=== PATIENT | female | born 1950 | race Caucasian/White ===

== ENCOUNTER 2018-08-06 09:00 | Day surgery (SDC) | payer MEDICARE, BC ==
[2018-07-30 17:06] VITALS: BMI 35.4
[~2018-08-06 09:00] MED LIST: ALPRAZolam 0.25 MG TAB PO PRN; ALPRAZolam 0.5 MG TAB PO PRN; ASPIRIN 325 MG TAB PO STA; NITROGLYCERIN SL TABS 0.4 MG TAB SUBLINGUAL PRN; SODIUM CHLORIDE 0.9% 1,000 ML in EMPTY BAG 1 BAG IV ONE
[2018-08-06 09:53] VITALS: PULSE 49; RESP 20; TEMP 97.9
[2018-08-06] MEDS ORDERED: VERAPAMIL 2.5 MG/ML 2 ML AMP ONE (10:10)
[2018-08-06] MEDS ORDERED: HEPARIN SODIUM 1,000 UN/ML (10ML VL) ONE (10:10)
[2018-08-06] MEDS ORDERED: MIDAZOLAM 2 MG/2 ML VIAL ONE (10:10)
[2018-08-06] MEDS ORDERED: LIDOCAINE 1% INJ 10MG/ML (20 ML MDV) ONE (10:10)
[2018-08-06] MEDS: MIDAZOLAM 2 MG/2 ML VIAL IVP ONE ×2 (10:19→10:40)
[2018-08-06] MEDS ORDERED: LIDOCAINE 1% (PF) 10MG/ML VIAL SQ ONE (10:23)
[2018-08-06] MEDS: VERAPAMIL SYRINGE (5 MG/10 ML) INTRAARTER ONE ×2 (10:25→10:56)
[2018-08-06] MEDS ORDERED: ADENOSINE 90 MG in SODIUM CHLORIDE 0.9% 60 ML IVP ONE (10:51)
[2018-08-06] MEDS ORDERED: IOPAMIDOL-370 125ML BTL INJ ONE (10:55)
[2018-08-06] MEDS ORDERED: RX INFO: IV CONTRAST WAS GIVEN 1 EACH MISC MISCELLANE PRN (10:59)
[2018-08-06] MEDS ORDERED: SODIUM CHLORIDE 0.9% 1,000 ML IV SCH (11:00)
--- NOTE | 2018-08-06 16:18 | CC ---
CARDIAC CATHETERIZATION REPORT DATE OF SERVICE: 08/06/2018 PERFORMING PHYSICIAN: Tim Gipson MD, sifter and miller. PROCEDURES PERFORMED: 1. Selective right and left coronary angiogram. 2. Left heart catheterization. 3. Fractional flow reserve of the left anterior descending coronary artery. INDICATION: This is a pleasant 68-year-old female patient with hypertension who was experiencing chest discomfort and underwent myocardial perfusion imaging stress test. That revealed anterior ischemia. Because of that, heart catheterization was advised. APPROACH: Right radial artery. COMPLICATIONS: None. LEVEL OF SEDATION: Moderate with sedation length of 36 minutes. PROCEDURE DESCRIPTION: After obtaining informed consent, the patient was brought to the cardiac roving tester laboratory. The right radial artery was cannulated using micropuncture technique. The micropuncture wire passed easily. Then I placed a 6-Peruvian sheath in the right radial artery and subsequently I gave the patient 2 mg of Verapamil IA and 10,000 units of heparin IV. Selective right and left coronary angiogram was achieved using JR4 and JL3.5 catheters. Left heart catheterization was performed using a 6-Peruvian pigtail catheter. After that I performed fractional flow reserve of the LAD. Please see a separate paragraph for that. SELECTIVE CORONARY ANGIOGRAM: 1. The RCA is a large-caliber vessel. It is a dominant vessel and it is angiographically normal. It distally bifurcates into PDA and PLV branches; both are angiographically normal. 2. The left main is angiographically normal. It bifurcates into left circumflex and left anterior descending artery. The left circumflex is a large-caliber vessel and a nondominant vessel. The proximal circumflex is normal. The mid circumflex is normal and gives rise to first and second OM branches. Both are angiographically normal and the circumflex distally appeared to be angiographically normal. 3. The LAD. The proximal LAD appeared to be angiographically normal. The mid LAD by the bifurcation of the first diagonal branch has a lesion that appeared to be in the range of 60% to 70%. I did an FFR on it and the FFR came in to be at 0.87, which is nonischemic. The LAD distally appeared to be angiographically normal. The first diagonal branch has an ostial lesion that appeared to be in the range of 50%. 4. Hemodynamics. The left ventricular end-diastolic pressure was 12 mmHg and no gradient was identified across the aortic valve. 5. FFR of the LAD. After zeroing the Doppler wire and equalizing between the Doppler wire and the guiding catheter, which was a JL3.5 guiding catheter, we did an FFR per IV adenosine infusion. The FFR came in to be 0.87. CONCLUSION: Intermediate disease involving the mid LAD. The FFR was performed and came in to be at 0.87. POST-PROCEDURE MANAGEMENT: Maximize medical treatment and follow up with the patient. QUINTEN / GALDINON: [id number] /
--- NOTE | 2018-08-06 16:21 | LTR ---
August 06, 2018 To: Dr. Rula Alvarez Re: Fátima Gilliland (46) Dear Dr. Alvarez, Ms. Fátima Gilliland underwent heart catheterization today that showed intermediate disease involving the mid LAD. I did a fractional flow reserve of that lesion and that came in to be nonischemic. Because of that, maximized medical treatment was advised. I want to thank you for allowing me to participate in her care. Please do not hesitate to call if you have any question or concern. Sincerely, Tim Gipson MD MMGERL / GALDINON: [id number] /
[2018-08-06 16:25] VITALS: BP 162/77
== END 2018-08-06 16:00 | disposition home or self-care (01) ==
LOC: CATHCVL 09:00
PROVIDERS: ATTEND Internal Medicine Interventional Cardiology
DX: I25.110 Atherosclerotic heart disease of native coronary artery with unstable angina pectoris (principal); I10 Essential (primary) hypertension; E78.5 Hyperlipidemia, unspecified; E78.00 Pure hypercholesterolemia, unspecified; E78.1 Pure hyperglyceridemia; Z82.49 Family history of ischemic heart disease and other diseases of the circulatory system; Z79.899 Other long term (current) drug therapy; Z79.82 Long term (current) use of aspirin
CPT/HCPCS: 93571; 93458; 85347; C1887; C1769; C1894; J2250; J0153; J2001; J1644; Q9967

== ENCOUNTER 2021-01-25 07:31 | Day surgery (SDC) | payer MEDICARE, BC ==
[2021-01-22 16:00] VITALS: BMI 35.4
[~2021-01-25 07:31] MED LIST changes: -ALPRAZolam 0.25 MG TAB PO PRN; -ALPRAZolam 0.5 MG TAB PO PRN; -ASPIRIN 325 MG TAB PO STA; +LACTATED RINGERS 1,000 ML IV SCH; -NITROGLYCERIN SL TABS 0.4 MG TAB SUBLINGUAL PRN; -SODIUM CHLORIDE 0.9% 1,000 ML in EMPTY BAG 1 BAG IV ONE
[2021-01-25 07:58] VITALS: TEMP 96.9
[2021-01-25] MEDS ORDERED: LIDOCAINE 1% (10MG/ML) FOR IV START INTRADERMA ONE (08:00)
[2021-01-25] MEDS ORDERED: GLYCOPYRROLATE 0.2 MG/ML 2 ML VIAL ONE (08:29)
[2021-01-25] MEDS ORDERED: PROPOFOL 10 MG/ML 20 ML VIAL IV ONE (08:29)
--- NOTE | 2021-01-25 08:33 | P.GSHP ---
History of Present Illness H&P Date: 01/25/21 Chief Complaint: Screening colonoscopy This a 70-year-old female presents today for screening colonoscopy. Patient denies a significant GI complaints. She has a history of colon polyps Past Medical History Past Medical History: Cancer, GERD/Reflux, Hyperlipidemia, Hypertension, Osteoarthritis (OA), Skin Disorder Additional Past Medical History / Comment(s): neg COVID test 01/11/21, was exposed to COVID 01/06/21- denies any symptoms. hx palpitations and irregular heartrate, dry skin, eczema, hypothyroid, hx uterine cancer History of Any Multi-Drug Resistant Organisms: None Reported Past Surgical History: Section, Cholecystectomy, Hysterectomy Additional Past Surgical History / Comment(s): colonoscopy, Past Anesthesia/Blood Transfusion Reactions: Motion Sickness Additional Past Anesthesia/Blood Transfusion Reaction / Comment(s): vertigo, Smoking Status: Never smoker - Past Family History Father Family Medical History: Cancer Additional Family Medical History / Comment(s): lung Sister(s) Family Medical History: Pulmonary Embolus Medications and Allergies Home Medications Medication Instructions Recorded Confirmed Type Aspirin [Adult Low Dose Aspirin EC] 81 mg PO HS 07/30/18 01/25/21 History Biotin 10,000 mcg PO BID 07/30/18 01/25/21 History Cetirizine HCl [Zyrtec] 10 mg PO HS 07/30/18 01/25/21 History Multivit-Min/Iron/Folic/Lutein 1 each PO DAILY 07/30/18 01/25/21 History [Centrum Silver Women Tablet] [place]-3 Fatty Acids [[place]-3] 1,000 mg PO DAILY 07/30/18 01/25/21 History Omeprazole 20 mg PO Q2D 07/30/18 01/25/21 History Turmeric (Unknown Dose) 538 mg PO DAILY 07/30/18 01/25/21 History atenoloL [Tenormin] 50 mg PO DAILY 07/30/18 01/25/21 History Cholecalciferol [Vitamin D3 (25 50 mcg PO HS 01/22/21 01/25/21 History Mcg = 1000 Iu)] Glucosamine/Chondr Peck A Sod [Osteo 1 each PO QAM 01/22/21 01/25/21 History Bi-Flex Caplet] L.acidoph,Paracasei, B.lactis 1 each PO HS 01/22/21 01/25/21 History [Probiotic] Lovastatin [Mevacor] 40 mg PO HS 01/22/21 01/25/21 History Allergies Allergy/AdvReac Type Severity Reaction Status Date / Time lovastatin Allergy joint pain Verified 01/25/21 07:58 Xkhkdyf-Syr-Rjq Reductase AdvReac JOINT PAIN Verified 01/25/21 07:58 Inhibitor Surgical - Exam Vital Signs Temp Pulse Resp BP Pulse Ox 96.9 F L 54 L 16 140/65 95 01/25/21 07:56 01/25/21 07:56 01/25/21 07:56 01/25/21 07:56 01/25/21 07:56 - General well developed, well nourished, no distress - Eyes PERRL - ENT normal pinna - Neck no masses - Respiratory normal expansion - Cardiovascular Rhythm: regular - Abdomen Abdomen: soft, non tender Assessment and Plan Assessment: We'll perform screening colonoscopy
--- NOTE | 2021-01-25 08:46 | P.OP ---
Date of Procedure: 01/25/21 Preoperative Diagnosis: Screening colonoscopy Postoperative Diagnosis: Diverticulosis Procedure(s) Performed: Colonoscopy Anesthesia: MAC Surgeon: Lang Painter Pathology: none sent Condition: stable Disposition: PACU Description of Procedure: The patient's placed on the endoscopy table lateral position. She received IV sedation. Digital rectal exam is performed revealed external hemorrhoids. The flexible colonoscope was then placed patient anus. Patient developed arrhythmia with appeared to be heart block. Anesthesia treated this. Patient then had the colonoscope advanced rotator colon. Ileocecal valve visualized. The cecum, ascending transverse colon appeared normal. The descending; appeared normal. The scope was then brought back the rectum and this appeared normal. Scope withdrawn for patient. Patient was sent to [facility] to have her cardiac rhythm checked. Cardiology consult was obtained.
[2021-01-25 11:24] VITALS: BP 152/65; RESP 18
--- NOTE | 2021-01-25 11:42 | P.CRDCN ---
History of Present Illness History of present illness: HISTORY OF PRESENTING ILLNESS This is a pleasant 70 year-old female past medical history significant for non critical coronary artery disease and known intermediate to severe disease involving the LAD, hypertension, dyslipidemia. She follows in the office with Dr. Gipson. We have been asked to see in consultation for an arrhythmia on telemetry during colonoscopy. Patient underwent colonoscopy, she received IV sedation. Per nursing patient supposedly developed an arrhythmia, possible pause vs heart block, however, this was not captured. EKG reveals sinus with PACs. Patient is seen and examined in recovery, lying in stretcher comfortably, no apparent distress. She denies chest pain, palpitations, shortness of breath, lower extremity edema, fatigue, weakness, lightheadedness, syncope. No history of Diabetes, stroke or UT. Patient's Current cardiac medications include atenolol 50mg daily, lovastatin 40mg daily, aspirin 81mg daily. No cardiac telemetry strips able to review. On bedside telemetry patient in sinus mechanism HR 50s-60s. BP 124/54, afebrile, currently on 2L nasal cannula maintaining oxygen saturations. Most recent cardiac [id number]/2018 intermediate disease involving the mid LAD, FFR was nonischemic at 0.87 Most recent echocardiogram05/2018- normal EF 55%, mild pulmonary hypertension, mild to moderate TR REVIEW OF SYSTEMS At the time of my exam: CONSTITUTIONAL: Denies fever or chills. CARDIOVASCULAR: Denies chest pain, shortness of breath, orthopnea, PND or palpitations. RESPIRATORY: Denies cough. GASTROINTESTINAL: Denies abdominal pain, diarrhea, constipation, nausea or vomiting. MUSCULOSKELETAL: Denies myalgias. NEUROLOGIC: Denies numbness, tingling, headacbe or weakness. ENDOCRINE: Denies fatigue, weight change, polydipsia or polyurina. GENITOURINARY: Denies burning, hematuria or urgency with micturation. HEMATOLOGIC: Denies history of anemia or bleeding. PHYSICAL EXAMINATION CONSTITUTIONAL: No apparent distress. HEENT: Head is normocephalic. Pupils are equal, round. Sclerae anicteric. Mucous membranes of the mouth are moist. No JVD. No carotid bruit. CHEST EXAMINATION: Lungs are clear to auscultation. No chest wall tenderness is noted on palpation or with deep breathing. HEART EXAMINATION: Regular rate and rhythm. S1, S2 heard. No murmurs, gallops or rub. ABDOMEN: Soft, nontender. Positive bowel sounds. EXTREMITIES: 2+ peripheral pulses, no lower extremity edema and no calf tenderness. SKIN: intact NEUROLOGIC EXAMINATION: Patient is awake, alert and oriented x3. ASSESSMENT Coronary artery disease- known intermediate to severe disease involving the LAD Hypertension Dyslipidemia. PLAN -No further cardiac testing at this time -Recommend decreasing atenolol to 25mg BID, this was discussed with bedside nursing and with the patient. -Follow up with cardiology appointment with Dr. Gipson after discharge -This was discussed with the patient and she is agreeable to the plan. Nurse Practitioner note has been reviewed, I agree with a documented findings and plan of care. Patient was seen and examined. Past Medical History Past Medical History: Cancer, GERD/Reflux, Hyperlipidemia, Hypertension, Osteoarthritis (OA), Skin Disorder Additional Past Medical History / Comment(s): neg COVID test 01/11/21, was exposed to COVID 01/06/21- denies any symptoms. hx palpitations and irregular heartrate, dry skin, eczema, hypothyroid, hx uterine cancer History of Any Multi-Drug Resistant Organisms: None Reported Past Surgical History: Section, Cholecystectomy, Hysterectomy Additional Past Surgical History / Comment(s): colonoscopy, Past Anesthesia/Blood Transfusion Reactions: Motion Sickness Additional Past Anesthesia/Blood Transfusion Reaction / Comment(s): vertigo, Smoking Status: Never smoker - Past Family History Father Family Medical History: Cancer Additional Family Medical History / Comment(s): lung Sister(s) Family Medical History: Pulmonary Embolus Medications and Allergies Home Medications Medication Instructions Recorded Confirmed Type Aspirin [Adult Low Dose Aspirin EC] 81 mg PO HS 07/30/18 01/25/21 History Biotin 10,000 mcg PO BID 07/30/18 01/25/21 History Cetirizine HCl [Zyrtec] 10 mg PO HS 07/30/18 01/25/21 History Multivit-Min/Iron/Folic/Lutein 1 each PO DAILY 07/30/18 01/25/21 History [Centrum Silver Women Tablet] [place]-3 Fatty Acids [[place]-3] 1,000 mg PO DAILY 07/30/18 01/25/21 History Omeprazole 20 mg PO Q2D 07/30/18 01/25/21 History Turmeric (Unknown Dose) 538 mg PO DAILY 07/30/18 01/25/21 History atenoloL [Tenormin] 50 mg PO DAILY 07/30/18 01/25/21 History Cholecalciferol [Vitamin D3 (25 50 mcg PO HS 01/22/21 01/25/21 History Mcg = 1000 Iu)] Glucosamine/Chondr Peck A Sod [Osteo 1 each PO QAM 01/22/21 01/25/21 History Bi-Flex Caplet] L.acidoph,Paracasei, B.lactis 1 each PO HS 01/22/21 01/25/21 History [Probiotic] Lovastatin [Mevacor] 40 mg PO HS 01/22/21 01/25/21 History Allergies Allergy/AdvReac Type Severity Reaction Status Date / Time lovastatin Allergy joint pain Verified 01/25/21 07:58 Rahpces-Rzp-Bvr Reductase AdvReac JOINT PAIN Verified 01/25/21 07:58 Inhibitor Physical Exam Vitals: Vital Signs Temp Pulse Resp BP Pulse Ox 01/25/21 07:56 96.9 F L 54 L 16 140/65 95 Intake and Output 01/24/21 01/25/21 01/25/21 22:59 06:59 14:59 Intake Total 200 Balance 200 Intake: IV 200 Other: Weight 109 kg Results Current Medications Generic Name Dose Route Start Last Admin Trade Name Freq PRN Reason Stop Dose Admin Lactated Ringer's 1,000 mls @ 20 mls/hr 01/25/21 05:14 01/25/21 08:00 Lactated Ringers IV 02/24/21 05:15 200 mls .Q24H YAMINI Administration Intake and Output 01/24/21 01/25/21 01/25/21 22:59 06:59 14:59 Intake Total 200 Balance 200 Intake: IV 200 Other: Weight 109 kg Patient Weight 01/26/21 06:59 Weight 109 kg
[2021-01-25 11:45] VITALS: PULSE 53
--- NOTE | 2021-01-29 07:55 | CDI ---
Date 01.29.21 CDS/Supervisor [employer] Name: Nicolasa Guzmán Phone: If any questions, call Johnna Suggs, [employer] at Patient Name: Fátima Gilliland Discharge Date: 01.25.2021 ATTENTION: The [facility] Coding Staff appreciate your assistance in clarifying documentation. Please respond to the clarification below the line at the bottom and electronically sign. The [facility] Coding staff will review the response and follow-up if needed. Please note: Queries are made part of the Legal Health Record. If you have any questions, please contact the [employer]. Dear Dr. Painter In order to code to the greatest specificity and for the greatest reimbursement I need the following information: You have documented the postop dx as diverticulosis, in description of procedure you have documented the cecum, ascending, transverse colon appear normal. The descending appear normal. Please document where the diverticulosis was found. Thank you for your kind consideration. operative note addendum made MTDD
== END 2021-01-25 12:04 | disposition home or self-care (01) ==
LOC: ORWHC2ENDO 07:31
PROVIDERS: ATTEND Surgery
DX: Z12.11 Encounter for screening for malignant neoplasm of colon (principal); K57.30 Diverticulosis of large intestine without perforation or abscess without bleeding; K64.4 Residual hemorrhoidal skin tags; I49.9 Cardiac arrhythmia, unspecified; I25.10 Atherosclerotic heart disease of native coronary artery without angina pectoris; I49.1 Atrial premature depolarization; K21.9 Gastro-esophageal reflux disease without esophagitis; E78.5 Hyperlipidemia, unspecified; I10 Essential (primary) hypertension; M19.90 Unspecified osteoarthritis, unspecified site; L85.3 Xerosis cutis; L30.9 Dermatitis, unspecified; E03.9 Hypothyroidism, unspecified; Z86.010 Personal history of colon polyps; Z85.42 Personal history of malignant neoplasm of other parts of uterus; Z86.79 Personal history of other diseases of the circulatory system; Z98.890 Other specified postprocedural states; Z90.49 Acquired absence of other specified parts of digestive tract; Z90.710 Acquired absence of both cervix and uterus; Z87.898 Personal history of other specified conditions; Z91.89 Other specified personal risk factors, not elsewhere classified; Z79.82 Long term (current) use of aspirin; Z79.899 Other long term (current) drug therapy; Z88.8 Allergy status to other drugs, medicaments and biological substances; Z97.2 Presence of dental prosthetic device (complete) (partial); Z80.1 Family history of malignant neoplasm of trachea, bronchus and lung; Z82.49 Family history of ischemic heart disease and other diseases of the circulatory system
CPT/HCPCS: 93005; G0105; J2704

== ENCOUNTER → 2022-07-09 | Outpatient (CLI) | payer MEDICARE, BC ==
--- NOTE | 2022-07-09 14:58 | US ---
EXAMINATION TYPE: US thyroid st tissue head/neck DATE OF EXAM: 07/09/2022 COMPARISON: NONE CLINICAL HISTORY: E04.2 NONTOXIC MULTINODULAR GOITER. Nodules, f/u, previous imaging elsewhere GLAND SIZE: Right Lobe: 4.3 x 1.4 x 1.7 cm Overall Parenchyma: heterogenous Left Lobe: 4.4 x 1.0 x 1.0 cm Overall Parenchyma: heterogeneous Isthmus Thickness: cm NODULES RIGHT: # of nodules measured on right: 1 1. 1.2 X 0.9 x 0.8 cm, mid, TIRADS Score: 4 TIRADS Category 4: Moderately Suspicious Composition: Solid or almost completely solid (2 points). Echogenicity: Hypoechoic (2 points). Shape: Wider than tall (0 points). Margin: Smooth (0 points). Echogenic foci: None or large comet-tail artifacts (0 points) Recommendation: If >1.5cm: FNA; If >1cm: Follow up at 1,3,5 years LEFT: # of nodules measured on left: 0 ISTHMUS: # of nodules measured in the isthmus: 0 Bilateral neck scanned, no evidence of lymphadenopathy. Hypoechoic 1.9 x 0.9 x 0.8cm inferior left nodule. Unable to determine if attached to thyroid inferio r pole versus possible parathyroid. IMPRESSION: 1. Right thyroid nodule TIRADS Category 4: Moderately Suspicious and meets criteria for one-year fol low-up. 2. Hypoechoic structure inferior to left thyroid gland which is indeterminate consider cross-section al imaging with CT of the neck with IV contrast for further evaluation. Findings may relate to parath yroid adenoma versus exophytic thyroid nodule.
== END | disposition home or self-care (01) ==
LOC: RADUSWWP 13:05
PROVIDERS: ATTEND Internal Medicine Endocrinology, Diabetes & Metabolism
DX: E04.2 Nontoxic multinodular goiter (principal)
CPT/HCPCS: 76536

== ENCOUNTER → 2023-01-29 | Outpatient (CLI) | payer MEDICARE, BC ==
--- NOTE | 2023-01-30 08:25 | MM ---
Reason for Exam: Screening (asymptomatic). Last mammogram was performed 1 year(s) and 1 month(s) ago. Patient History: Menarche at age 12. First Full-Term at age 35. Late child-bearing (after 30). Left ovary removed at age 57. Right ovary removed at age 57. Hysterectomy at age 57. Postmenopausal. Patient has history of breast feeding. Endometrial cancer, age 57. Risk Values: Paola 5 year model risk: 2.2%. NCI Lifetime model risk: 5.1%. Prior Study Comparison: 12/09/2019 Bilateral Screening Mammogram, [facility]. 12/21/2020 Bilateral Screening Mammogram, [facility]. 01/01/2022 Bilateral Screening Mammogram, [facility]. Tissue Density: There are scattered fibroglandular densities. Findings: Analyzed By CAD. There is occasional tiny benign-appearing punctate calcifications redemonstrated throughout the bilateral breasts. There is no suspicious group of microcalcifications or new suspicious mass in either breast. Overall Assessment: Benign, BI-RAD 2 Management: Screening Mammogram of both breasts in 1 year. A clinical breast exam by your physician is recommended on an annual basis and results should be correlated with mammographic findings. Electronically signed and approved by: Benjamín Gonzales M.D.
== END | disposition home or self-care (01) ==
LOC: RADMAMWWP 14:21
PROVIDERS: ATTEND Family Medicine
DX: Z12.31 Encounter for screening mammogram for malignant neoplasm of breast (principal); Z78.0 Asymptomatic menopausal state
CPT/HCPCS: 77063; 77067

== ENCOUNTER → 2023-01-29 | Outpatient (CLI) | payer MEDICARE, BC ==
--- NOTE | 2023-01-29 16:12 | US ---
EXAMINATION TYPE: US thyroid st tissue head/neck DATE OF EXAM: 01/29/2023 COMPARISON: 07/09/2022 CLINICAL HISTORY: 72-year-old female E04.2 NONTOXIC MULTINODULAR GOITER. Technique: Multiple sonographic images of the thyroid gland are obtained. FINDINGS: GLAND SIZE: Right Lobe: 3.9 x 1.0 x 1.2 cm Overall Parenchyma: homogenous Left Lobe: 3.7 x 0.9 x 1.0 cm Overall Parenchyma: homogeneous Isthmus Thickness: 0.3 cm NODULES RIGHT: # of nodules measured on right: Subcentimeter small cyst. Posterior to Thyroid is a hypoechoic mass, (labeled as nodule 1 on prior exam) 1. 0.8 X 0.5 x 0.5 cm, upper posterior, solid or almost completely solid, hypoechoic nodule, which is as wide as tall, with smooth margins, without echogenic foci. Possible left node or colloid cyst. Ongoing follow-up can be performed. Prior size: 0.8 cm LEFT: # of nodules measured on left: 0 Inferior to the left lobe is a solid mass as described: 1. 1.5 X 0.8 x 1.0 cm, lower , solid or almost completely solid, very hypoechoic nodule, which is w ider than tall, with smooth margins, without echogenic foci. Prior size: 1.9 x 0.9 x 0.8 cm ISTHMUS: # of nodules measured in the isthmus: 0 Bilateral neck scanned, no evidence of lymphadenopathy. IMPRESSION: Nodule on either side. On the left, it appears exophytic from the lower pole, stable to decreased in size at 1.5 cm versus 1.9 cm, previously. The nodule posteriorly on the right is unchanged at 8 mm. O ngoing follow-up can be performed.
[2023-01-30 03:28] LABS: African American GFR (CKD) 84.2 (60.0-200.0); Albumin 3.9 g/dL (3.8-4.9); Albumin/Globulin Ratio 1.77 (1.60-3.17); Anion Gap 8.5 mmol/L (10.00-18.00); Blood Urea Nitrogen 18.4 mg/dL (9.0-27.0); Calcium 9.6 mg/dL (8.7-10.3); Carbon Dioxide 28.5 mmol/L (20.0-27.5); Globulin 2.2 g/dL (1.6-3.3); Non-African American GFR(CKD) 72.6 (60.0-200.0); Potassium 5.1 mmol/L (3.5-5.5); T4, Free (Free Thyroxine) 1.15 ng/dL (0.800-1.800); Total Bilirubin 0.8 mg/dL (0.30-1.20); Total Protein 6.1 g/dL (6.2-8.2)
== END | disposition home or self-care (01) ==
LOC: RADUSWWP 14:23
PROVIDERS: ATTEND Internal Medicine Endocrinology, Diabetes & Metabolism
DX: E04.2 Nontoxic multinodular goiter (principal)
CPT/HCPCS: 76536; 80053; 83970; 84439; 84443

== ENCOUNTER → 2024-03-18 | Outpatient (CLI) | payer MEDICARE, BC ==
--- NOTE | 2024-03-18 15:26 | US ---
EXAMINATION TYPE: US thyroid st tissue head/neck DATE OF EXAM: 03/18/2024 COMPARISON: US 2022 CLINICAL INDICATION: Female, 73 years old with history of E042 NONTOXIC GOITER; GLAND SIZE: Right Lobe: 3.9 x 1.3 x 1.5 cm Overall Parenchyma: heterogeneous Left Lobe: 5.4 x 1.1 x 1.3 cm Overall Parenchyma: heterogeneous Isthmus Thickness: 0.3 cm NODULES RIGHT: # of nodules measured on right: 0 - nodule seen on previous study not seen on today's exam LEFT: # of nodules measured on left: 1 1. 1.5 X 1.1 x 1.2 cm, lower medial, solid or almost completely solid, hypoechoic nodule, which is wider than tall, with ill-defined margins, without echogenic foci. TR 4. Prior size: 1.5 x 0.8 x 1.0 cm ISTHMUS: # of nodules measured in the isthmus: 0 Bilateral neck scanned, no evidence of lymphadenopathy. IMPRESSION: Moderately suspicious nodule left lobe thyroid. Fine-needle aspiration recommended if not previously performed. 2017 ACR TI-RADS LEVEL: TR-RADS 4 - Moderately Suspicious: Follow if > 1 cm, FNA if > 1.5 cm *Highest TI-RADS level nodule reported
== END | disposition home or self-care (01) ==
LOC: RADUSWWP 14:21
PROVIDERS: ATTEND Internal Medicine Endocrinology, Diabetes & Metabolism
DX: E04.2 Nontoxic multinodular goiter (principal)
CPT/HCPCS: 76536

== ENCOUNTER → 2024-03-18 | Outpatient (CLI) | payer MEDICARE, BC ==
[2024-03-18 19:21] LABS: T4, Free (Free Thyroxine) 1.16 ng/dL (0.80-1.80)
--- NOTE | 2024-03-21 14:55 | MM ---
Reason for Exam: Screening (asymptomatic). Last mammogram was performed 1 year(s) and 1 month(s) ago. Patient History: Menarche at age 12. First Full-Term at age 35. Late child-bearing (after 30). Left ovary removed at age 57. Right ovary removed at age 57. Hysterectomy at age 57. Postmenopausal. Patient has history of breast feeding. Risk Values: Paola 5 year model risk: 2.2%. NCI Lifetime model risk: 4.8%. Prior Study Comparison: 12/21/2020 Bilateral Screening Mammogram, [facility]. 01/01/2022 Bilateral Screening Mammogram, [facility]. 01/29/2023 Bilateral MG 3D screening mammo w/cad, [facility]. Tissue Density: There are scattered areas of fibroglandular density. Findings: Analyzed By CAD. The pattern is symmetrical. No significant interval changes are evident No suspicious groups of microcalcifications, spiculated or lobular masses, architectural distortion or other secondary signs of malignancy are mammographically apparent. Overall Assessment: Benign, BI-RAD 2 Management: Screening Mammogram of both breasts in 1 year. A negative mammogram report should not preclude additional follow up of suspicious palpable abnormalities. Patient should continue monthly self breast exam. A clinical breast exam by your physician is recommended on an annual basis and results should be correlated with mammographic findings. Note on Paola scores and lifetime risk: 1. A Paola score greater than 3% is considered moderate risk. If this is the case, consider specialist referral to assess eligibility for a risk reducing agent. 2. If overall lifetime risk for the development of breast cancer is 20% or higher, the patient may qualify for future screening with alternating mammogram and breast MRI. Electronically signed and approved by: Bakari Marie D.O. Radiologis
== END | disposition home or self-care (01) ==
LOC: RADMAMWWP 14:24
PROVIDERS: ATTEND Family Medicine
DX: Z12.31 Encounter for screening mammogram for malignant neoplasm of breast (principal); Z78.0 Asymptomatic menopausal state
CPT/HCPCS: 36415; 77063; 77067; 84439; 84443

== ENCOUNTER → 2025-04-06 | Outpatient (CLI) | payer MEDICARE, BC ==
--- NOTE | 2025-04-06 09:37 | US ---
EXAMINATION TYPE: US abdomen complete DATE OF EXAM: 04/06/2025 COMPARISON: NONE CLINICAL INDICATION: Female, 74 years old with history of R10.84 ABD PAIN; pain TECHNIQUE: Grayscale and color Doppler imaging of the abdomen was performed. FINDINGS: EXAM MEASUREMENTS: Liver Length: 13.5 cm Gallbladder Wall: Surgically absent CBD: .3 cm, color Doppler imaging was utilized to isolate the common bile duct for measurement. Spleen: 9.8 cm Right Kidney: 9.5 x 4.1 x 4.3 cm Left Kidney: 10.7 x 4.7 x 4.7 cm HOP SORTER NOTES: Pancreas: Tail obscured by overlying bowel gas Liver: Increased attenuation, no dilated ducts, masses or cysts. Gallbladder: Surgically absent Evidence for sonographic Nelson's sign: no CBD: wnl Spleen: wnl Right Kidney: wnl, No hydronephrosis, calculi or masses seen Left Kidney: Hypoechoic area lower pole 1.6 x 1.5 x 1.8 cm Upper IVC: wnl Abd Aorta: wnl IMPRESSION: 1. Nonsimple cyst inferior pole left kidney. Follow-up can be performed. 2. Abdomen ultrasound is otherwise unremarkable. [facility], , 04/06/2025 9:35 AM
--- NOTE | 2025-04-06 09:57 | BD ---
EXAMINATION TYPE: Axial Bone Density DATE OF EXAM: 04/06/2025 CLINICAL HISTORY: 74 years old Female. ICD-10 CODE: Z78.0 MENOPAUSAL , Additional History: Height: 66 Weight: 234.8 FRAX RISK QUESTIONS: Alcohol (3 or more units per day): no Family History (Parent hip fracture): no Glucocorticoids (More than 3mos): no (Ex: prednisone, prednisolone, methylprednisolone, dexamethasone, and hydrocortisone). History of Fracture in Adulthood: no Secondary Osteoporosis: 1. Type 1 Diabetes: no 2. Hyperthyroidism: no 3. Menopause before 45: no 4. Malnutrition: no 5. Chronic liver disease: no Rheumatoid Arthritis: no Current Tobacco Use: no RISK FACTORS HISTORY OF: Surgery to Spine/Hip(right/left)/Wrist (right/left): no EXAM MEASUREMENTS: Bone mineral densitometry was performed using the [employer] [facility]. Bone mineral density as measured about the Lumbar spine is: ----- L1-L4(G/cm2): 1.199 T Score Values are as follows: ----- L1: 0.0 ----- L2: 0.0 ----- L3: 0.5 ----- L4: 0.1 ----- L1-L4: 0.2 Z Score Values are as follows: ----- L1: 0.6 ----- L2: 0.6 ----- L3: 1.1 ----- L4: 0.7 ----- L1-L4: 0.8 Bone mineral density baseline Bone mineral density about the R hip (g/cm2): 0.990 Bone mineral density about the L hip (g/cm2): 0.924 T Score values are as follows: -----R Neck: -0.7 -----L Neck: -1.0 -----R Total: -0.1 -----L Total: -0.7 Z Score values are as follows: -----R Neck: 0.5 -----L Neck: 0.2 -----R Total: 0.9 -----L Total: 0.3 Bone mineral density : baseline FRAX%s: The graph provided illustrates a 9.6% chance for a major osteoporotic fx and a 1.5% chance fo r the hips probability for fx in 10 years time. IMPRESSION: Normal (Values between +1 and -1 indicate normal bone mass). Consider repeating this study in 5 year s or sooner if there is some new clinical indication. NOTE: T-SCORE=SD OF THE YOUNG ADULT MEAN. [facility], Workstation: 3, 04/06/2025 9:54 AM
--- NOTE | 2025-04-06 10:19 | MM ---
Reason for Exam: Screening (asymptomatic). Last mammogram was performed 1 year(s) and 1 month(s) ago. Patient History: Menarche at age 12. First Full-Term at age 35. Late child-bearing (after 28). Left ovary removed at age 57. Right ovary removed at age 57. Hysterectomy at age 57. Postmenopausal. Patient has history of breast feeding. Risk Values: Paola 5 year model risk: 2.2%. NCI Lifetime model risk: 4.5%. Prior Study Comparison: 01/01/2022 Bilateral Screening Mammogram, [facility]. 01/29/2023 Bilateral MG 3D screening mammo w/cad, [facility]. 03/18/2024 Bilateral MG 3D screening mammo w/cad, [facility]. Tissue Density: The breasts are almost entirely fatty. Findings: Analyzed By CAD. There is no suspicious group of microcalcifications or new suspicious mass in either breast. Chronic nodularity stable. Overall Assessment: Benign, BI-RAD 2 Management: Screening Mammogram of both breasts in 1 year. . Patient should continue monthly self-breast exams. A clinical breast exam by your physician is recommended on an annual basis. This exam should not preclude additional follow-up of suspicious palpable abnormalities. Note on Paola scores and lifetime risk: 1. A Paola score greater than 3% is considered moderate risk. If this is the case, consider specialist referral to assess eligibility for a risk reducing agent. 2. If overall lifetime risk for the development of breast cancer is 20% or higher, the patient may qualify for future screening with alternating mammogram and breast MRI. [facility], , 04/06/2025 10:16 AM. Electronically signed and approved by: Howie Owens M.D. [facility]
== END | disposition home or self-care (01) ==
LOC: RADUSWWP 08:59
PROVIDERS: ATTEND Family Medicine
DX: Z12.31 Encounter for screening mammogram for malignant neoplasm of breast (principal); N28.1 Cyst of kidney, acquired; R92.313 Mammographic fatty tissue density, bilateral breasts; Z78.0 Asymptomatic menopausal state
CPT/HCPCS: 76700; 77063; 77067; 77080